=== PATIENT | male | born 1940 ===

== ENCOUNTER 2017-04-05 09:48 | Emergency (ER) | payer MEDICARE ==
[2017-04-05 09:48] VITALS: BMI 34.2
[2017-04-05] MEDS ORDERED: Acetaminophen-Codeine 300/30 mg Tab PO STA (10:23)
[2017-04-05] MEDS ORDERED: Acetaminophen-Codeine 300/30 mg Tab PO ONE (10:29)
--- NOTE | 2017-04-05 10:39 | C.PDOC ---
History Of Present Illness 76 y/o male presents to the ED with complaints of back pain worsening over the past week. 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 Pt has had similar pain in the past, last episode was 5 years ago. Pt took tylenol, naproxen without relief. Pt had appointment with PMD yesterday, but states the wait was too long so he had to leave. He denies fever, urinary/bowel incontinence, urinary retention, sensory changes, extremity weakness. Time Seen by Provider: 04/05/17 10:05 Chief Complaint (Nursing): Back Pain History Per: Patient History/Exam Limitations: no limitations Onset/Duration Of Symptoms: Days, Persistent Current Symptoms Are (Timing): Worse Quality Of Discomfort: "Pain" Severity: Moderate Associated Symptoms: None. denies: Incontinence, New Weakness, New Numbness Exacerbating Factor(s): Sitting Past Medical History Reviewed: Historical Data, Nursing Documentation, Vital Signs Vital Signs: Last Vital Signs Temp 97.3 F L 04/05/17 11:49 Pulse 62 04/05/17 12:32 Resp 18 04/05/17 12:32 BP 169/75 H 04/05/17 12:32 Pulse Ox 98 04/05/17 12:33 - Medical History PMH: Arthritis (MILD IN HANDS), Benign Prostatic Hyperplasia, HTN Family History: States: No Known Family Hx - Social History Hx Tobacco Use: No Hx Alcohol Use: No Hx Substance Use: No - Immunization History Hx Tetanus Toxoid Vaccination: No Hx Influenza Vaccination: Yes Hx Pneumococcal Vaccination: No Review Of Systems Except As Marked, All Systems Reviewed And Found Negative. Constitutional: Negative for: Fever, Chills Cardiovascular: Negative for: Chest Pain, Palpitations Respiratory: Negative for: Cough, Shortness of Breath Gastrointestinal: Negative for: Nausea, Vomiting, Abdominal Pain, Diarrhea Genitourinary: Negative for: Incontinence Musculoskeletal: Positive for: Other (right hip pain) Skin: Negative for: Rash Neurological: Negative for: Weakness, Numbness Physical Exam - Physical Exam Appears: Well, Non-toxic, In Acute Distress (moderate pain) Skin: Warm, Dry, No Rash Head: Normacephalic Oral Mucosa: Moist Neck: Normal, Supple Cardiovascular: Rhythm Regular Respiratory: Normal Breath Sounds, No Rales, No Rhonchi, No Wheezing Gastrointestinal/Abdominal: Normal Exam, Bowel Sounds, Soft, No Tenderness Back: No Vertebral Tenderness, No Paraspinal Tenderness Extremity: Normal ROM (decreased ROM right hip due to pain), Tenderness (right posterior hip tenderness to palpation), No Deformity, No Swelling Extremity: Bilateral: Normal Color And Temperature Pulses: Left Dorsalis Pedis: Normal, Right Dorsalis Pedis: Normal Neurological/Psych: Oriented x3, Normal Motor, Normal Sensation ED Course And Treatment O2 Sat by Pulse Oximetry: 98 (room air) Pulse Ox Interpretation: Normal - Other Rad right hip/pelvis X-Ray: Interpreted by Me, Viewed By Me (no fractures/dislocations, arthritic changes) Progress Note: Patient given Tylenol #3 PO, and Xray of hip/pelvis ordered and reviewed. 11:30am - Patient still having significant pain - IM toradol, PO Flexeril and PO Prednisone ordered. Reevaluation Time: 12:30 Reassessment Condition: Improved (On reassessment, patient states his pain has improved. He is able to ambulate normally in the ED. Rxs given for Naprosyn, Flexeril and Tylenol #3, and patient instructed on their use. He was instructed to follow up with PMD in 1-2 days, and understands he should return to ED if symptoms worsen.) Disposition Counseled Patient/Family Regarding: Studies Performed, Diagnosis, Need For Followup, Rx Given - Disposition Referrals: Clint Jewell MD [Staff Provider] - Disposition: HOME/ ROUTINE Disposition Time: 12:30 Condition: STABLE Additional Instructions: FOLLOW UP WITH YOUR DOCTOR IN 1-2 DAYS USE PAIN MEDICATION NEEDED - DO NOT MIX TYLENOL #3 + CYCLOBENZABRINE RETURN TO ER IF SYMPTOMS WORSEN Prescriptions: Acetaminophen with Codeine [Tylenol with Codeine #3 Tablet] 1 each PO Q6 PRN # 12 tablet PRN Reason: pain Cyclobenzaprine [Cyclobenzaprine HCl] 10 mg PO BID PRN #12 tab PRN Reason: pain/muscle Naproxen [Naprosyn] 1 tab PO BID PRN #20 tab PRN Reason: Pain Instructions: Osteoarthritis (ED), Hip Pain (ED) Forms: Work Excuse Print Language: MACEDONIAN - POA Present On Arrival: None - Clinical Impression Clinical Impression: Osteoarthritis, Right hip pain - Scribe Statement The provider has reviewed the documentation as recorded by the Manish Neville Provider Attestation: All medical record entries made by the Manish were at my direction and personally dictated by me. I have reviewed the chart and agree that the record accurately reflects my personal performance of the history, physical exam, medical decision making, and the department course for this patient. I have also personally directed, reviewed, and agree with the discharge instructions and disposition.
[2017-04-05 11:56] VITALS: TEMP 97.3
--- NOTE | 2017-04-05 12:20 | RAD ---
PROCEDURE: Right Hip Radiographs. HISTORY: right hip pain, COMPARISON: None. FINDINGS: BONES: Normal. No fracture. JOINTS: Normal. SOFT TISSUES: Normal. OTHER FINDINGS: None. IMPRESSION: Normal radiographs of right hip.
[2017-04-05 12:33] VITALS: BP 169/75; PULSE 62; RESP 18; O2SAT 98
== END 2017-04-05 12:39 | disposition home or self-care (01) ==
LOC: C.ER 09:48
DX: M16.11 Unilateral primary osteoarthritis, right hip (principal)
CPT/HCPCS: 73502; 96372; 99284; J1885

== ENCOUNTER 2018-10-29 08:56 | Outpatient (CLI) | payer MEDICARE | END 2018-10-29 08:57 | disposition home or self-care (01) | LOC: C.PAT 08:56 | DX: J34.2 Deviated nasal septum (principal); J34.3 Hypertrophy of nasal turbinates; J32.0 Chronic maxillary sinusitis; J32.1 Chronic frontal sinusitis; J32.3 Chronic sphenoidal sinusitis ==

== ENCOUNTER 2018-11-06 07:22 | Day surgery (SDC) | payer MEDICARE ==
[2018-10-29 09:11] VITALS: BMI 33.6
[2018-11-06] MEDS ORDERED: Acetaminophen-Codeine 300/30 mg Tab PO PRN (08:16)
[2018-11-06] MEDS ORDERED: ceFAZolin 1 gm in NS 1 GM/100 ML BAG IVPB ONE (08:22)
[2018-11-06] MEDS ORDERED: EPINEPHrine 1:1000 Nasal Sol(30mL) ONE (08:23)
[2018-11-06] MEDS ORDERED: Lidocaine/Epinephrine 1% 1:100000 10 ML IJ ONE (08:23)
[2018-11-06] MEDS ORDERED: Dextrose 5%/0.45% NS 1,000 ML IV SCH (08:30)
[2018-11-06] MEDS ORDERED: Succinylcholine Chloride 20 mg/ml Syr (5 ml) IV ONE (10:51)
[2018-11-06] MEDS ORDERED: Rocuronium 10 mg/ml (5 ml) ONE (10:51)
[2018-11-06] MEDS ORDERED: Propofol 10 mg/ml Inj (20 ML) ONE (10:52)
[2018-11-06] MEDS ORDERED: Lidocaine Hydrochloride 5 ML INJ ONE (10:52)
[2018-11-06] MEDS ORDERED: Labetalol 25mg/5ml Syringe ONE (11:11)
[2018-11-06] MEDS ORDERED: ePHEDrine 50 mg/ml Inj ONE (11:18)
[2018-11-06] MEDS ORDERED: Neostigmine 1:1000 (1 mg/ml) Inj ONE (12:05)
[2018-11-06] MEDS: HYDROmorphone 0.5 mg/0.5 ml ISec IVP PRN ×2 (12:43→13:00)
[2018-11-06 13:04] VITALS: RESP 20
[2018-11-06 13:44] VITALS: PULSE 90; TEMP 97.3
[2018-11-06 14:22] VITALS: O2SAT 99
[2018-11-06 14:23] VITALS: BP 130/69
--- NOTE | 2018-11-06 22:52 | OP ---
PROCEDURE DATE: 11/06/2018 PREOPERATIVE DIAGNOSES: Deviated septum, large turbinates, sinusitis. POSTOPERATIVE DIAGNOSIS: Deviated septum, large turbinates, sinusitis. PROCEDURES: Septoplasty, endoscopic bilateral maxillary antrostomy, endoscopic bilateral ethmoidectomy, endoscopic bilateral frontal sinusotomy, endoscopic bilateral inferior turbinate reduction. SIGNIFICANT FINDINGS: Deviated septum, large turbinates, sinusitis. DESCRIPTION OF PROCEDURE: The patient was brought into room, placed in supine position, anesthesia initiated through an ET tube. The patient was draped in usual manner. Navigation was set up and used throughout the case in order to ensure the skull base and orbit were not entered. Adrenaline-soaked pledgets were inserted into nasal cavity, they remained there for 5 minutes and removed. The septum was injected on both sides with lidocaine with epinephrine. A Bet[place] incision was made on the left and mucoperichondrial flap was raised. A vertical incision was made in the cartilage leaving 1.5 cm anterior and superior strut and mucoperichondrial flap was raised on the other side. Deviated portion of bone and cartilage were removed. Quilting suture was used to suture the two flaps together. A 0-degree scope was inserted into the nasal cavity. The inferior turbinates were noted to be enlarged and reduced on both sides, first on the left and then on the right using scissors going from inferior to superior, anterior posterior direction. Bleeding was controlled using suction cautery on both sides. Attention was turned to left and the turbinate was injected with lidocaine with epinephrine and medialized. Polyps were noted in the middle meatus, they were biopsied. A debrider was used to remove the polyps. The area of the uncinate process was removed using a debrider. The ethmoid bulla was entered inferomedially going posteriorly to the basal lamella, then anterior and superiorly until the ethmoid bulla was removed. The basal lamella was entered. Posterior ethmoid cells were entered and opened. Skull base was identified and followed anteriorly all the way to the area of the anterior ethmoid air cells. The frontal recess was noted to be stenosed and opened using forceps. Curved suction hooked up to navigation was used to locate the maxillary antrum which was noted to be stenosed and opened using forceps. Attention was turned to the other side. The middle turbinate was medialized after it was injected with lidocaine with epinephrine. The uncinate process was medialized using a [place] elevator and removed using forceps. A debrider was used to enter the ethmoid bulla inferomedially going posteriorly to the basal lamella, then anteriorly and superiorly until the ethmoid bulla was removed. The basal lamella was entered. Posterior ethmoid cells were entered. The skull base was identified and followed anteriorly all the way to the area of anterior ethmoid air cells. Frontal recess was noted to be stenosed and opened using forceps. Curved suction hooked up to navigation was used to locate the maxillary antrum which was noted to be stenosed and opened using forceps. Bleeding was controlled using adrenaline-soaked pledgets and suction cautery. The patient was taken off anesthesia and taken to recovery room in stable manner after splints and stents were placed. Rickey Sarkar MD
== END 2018-11-06 14:23 | disposition home or self-care (01) ==
LOC: C.SDS 07:22
PROVIDERS: ATTEND Otolaryngology
DX: J34.2 Deviated nasal septum (principal); J34.3 Hypertrophy of nasal turbinates; J32.0 Chronic maxillary sinusitis
CPT/HCPCS: 30140; 30520; 31255; 31256; 82948; 88304; J0690; J1100; J1170; J2405; J2704; J2710; J3010

== ENCOUNTER 2018-11-06 21:44 | Emergency (ER) | payer MEDICARE ==
[2018-11-06 21:44] VITALS: BMI 33.6
[2018-11-06 21:52] VITALS: RESP 20; TEMP 97.7
--- NOTE | 2018-11-06 22:05 | C.PDOC ---
History Of Present Illness The patient, who underwent nasal polyps removal by Dr. Sarkar this afternoon, presents to the ED for evaluation of slight bleeding from the area which began prior to arrival. Patient denies fever, chills, palpitations, nausea, and vomiting. Time Seen by Provider: 11/06/18 22:04 Chief Complaint (Nursing): ENT Problem History Per: Patient History/Exam Limitations: None Onset/Duration Of Symptoms: Hrs Current Symptoms Are (Timing): Still Present Symptoms Have Been: Episodic Severity: Mild Pain Scale Rating Of: 1 Past Medical History Reviewed: Historical Data, Nursing Documentation, Vital Signs Vital Signs: Last Vital Signs Temp 97.7 F 11/06/18 21:46 Pulse 100 H 11/06/18 21:46 Resp 20 11/06/18 21:46 BP 189/80 H 11/06/18 21:46 Pulse Ox 98 11/06/18 21:46 - Medical History PMH: Arthritis, Asthma, Benign Prostatic Hyperplasia, HTN Denies: Chronic Kidney Disease Surgical History: No Surg Hx Family History: States: Unknown Family Hx - Social History Hx Tobacco Use: No Hx Alcohol Use: No Hx Substance Use: No - Immunization History Hx Tetanus Toxoid Vaccination: No Hx Influenza Vaccination: Yes Hx Pneumococcal Vaccination: No Review Of Systems Constitutional: Negative for: Fever, Chills ENT: Positive for: Other (epistaxis ) Cardiovascular: Negative for: Chest Pain, Palpitations Respiratory: Negative for: Cough, Shortness of Breath Gastrointestinal: Negative for: Nausea, Vomiting Skin: Negative for: Rash, Lesions, Jaundice, Bruising Neurological: Negative for: Weakness, Numbness Physical Exam - Physical Exam Appears: Non-toxic, No Acute Distress Skin: Warm, Dry Head: Normacephalic Eye(s): bilateral: Normal Inspection Nose: No Epistaxis (active ), Other (surgical clips in place. small amount of blood noted in the openings of bilateral nares. ) Oral Mucosa: Moist Throat: Other (minimal amount of blood noted in oropharynx ) Neck: Supple Chest: Symmetrical, No Deformity Cardiovascular: Rhythm Regular Respiratory: No Rales, No Rhonchi, No Wheezing Extremity: Normal ROM, Capillary Refill (less than 2 seconds ) Neurological/Psych: Oriented x3 Gait: Steady ED Course And Treatment O2 Sat by Pulse Oximetry: 98 (on RA ) Pulse Ox Interpretation: Normal Progress Note: Case discussed with Dr. Sarkar, agrees to keep patient in the ED for observation. Reevaluation Time: 22:51 Reassessment Condition: Improved Disposition Counseled Patient/Family Regarding: Studies Performed, Diagnosis, Need For Followup - Disposition Referrals: Rickey Sarkar MD [Staff Provider] - Disposition: HOME/ ROUTINE Disposition Time: 22:04 Condition: FAIR Additional Instructions: Please return if symptoms recur. May see dr sarkar tomorrow at his [facility] office Instructions: Nosebleeds (DC) Forms: [employer] (Canadian) - Clinical Impression Clinical Impression: Nasal bleeding - Scribe Statement The provider has reviewed the documentation as recorded by the Scribe (Margot Barlow) Provider Attestation: All medical record entries made by the Scribe were at my direction and personally dictated by me. I have reviewed the chart and agree that the record accurately reflects my personal performance of the history, physical exam, medical decision making, and the department course for this patient. I have also personally directed, reviewed, and agree with the discharge instructions and disposition.
[2018-11-07 00:02] VITALS: BP 132/78; PULSE 90; O2SAT 97
== END 2018-11-06 23:59 | disposition home or self-care (01) ==
LOC: C.ER 21:44
DX: R04.0 Epistaxis (principal); I10 Essential (primary) hypertension; N40.0 Benign prostatic hyperplasia without lower urinary tract symptoms

== ENCOUNTER 2019-02-02 11:58 | Emergency (ER) | payer MEDICARE ==
[2019-02-02 11:59] VITALS: BMI 33.6
[2019-02-02 12:26] VITALS: BP 159/75; PULSE 70; TEMP 97.8; O2SAT 96
--- NOTE | 2019-02-02 13:31 | C.PDOC ---
History Of Present Illness 78 y/o male presents to ED with chief complaint of right lower back pain for the past 3 days s/p right gluteal biopsy. Patient describes the pain to be sharp and is exacerbated by movement. He denies bowel/bladder dysfunction, abdominal pain, weakness, numbness, or other complaints. Time Seen by Provider: 02/02/19 12:22 Chief Complaint (Nursing): Back Pain History Per: Patient History/Exam Limitations: no limitations Onset/Duration Of Symptoms: Days Current Symptoms Are (Timing): Still Present Past Medical History Reviewed: Historical Data, Nursing Documentation, Vital Signs Vital Signs: Last Vital Signs Temp 97.8 F 02/02/19 12:24 Pulse 70 02/02/19 12:24 Resp 19 02/02/19 12:24 BP 159/75 H 02/02/19 12:24 Pulse Ox 96 02/02/19 12:24 Primary Care Provider: Shelby Valencia - Medical History PMH: Arthritis, Asthma, Benign Prostatic Hyperplasia, HTN Denies: Chronic Kidney Disease Family History: States: No Known Family Hx - Social History Hx Tobacco Use: No Hx Alcohol Use: No Hx Substance Use: No - Immunization History Hx Tetanus Toxoid Vaccination: No Hx Influenza Vaccination: Yes Hx Pneumococcal Vaccination: No Review Of Systems Except As Marked, All Systems Reviewed And Found Negative. Constitutional: Negative for: Fever, Chills Gastrointestinal: Negative for: Nausea, Abdominal Pain, Diarrhea Genitourinary: Negative for: Dysuria, Incontinence, Hematuria Musculoskeletal: Positive for: Back Pain Neurological: Negative for: Weakness, Numbness Physical Exam - Physical Exam Appears: Non-toxic, No Acute Distress Skin: Warm, Dry Head: Atraumatic, Normacephalic Eye(s): bilateral: Normal Inspection Oral Mucosa: Moist Neck: Supple Gastrointestinal/Abdominal: Soft, No Tenderness Back: No CVA Tenderness, No Vertebral Tenderness Extremity: No Swelling, Other (point tenderness in right buttock) Extremity: Bilateral: Normal Color And Temperature Neurological/Psych: Oriented x3, Normal Speech, Normal Motor, Normal Sensation ED Course And Treatment O2 Sat by Pulse Oximetry: 96 (RA) Pulse Ox Interpretation: Normal Medical Decision Making Medical Decision Making: Plan: --LS Spine XR --Morphine 2 mg IM --Toradol 15 mg IM --Zofran 4 mg PO Disposition Counseled Patient/Family Regarding: Studies Performed, Diagnosis, Need For Followup, Rx Given - Disposition Referrals: Shelby Valencia MD [Medical Doctor] - Disposition: HOME/ ROUTINE Disposition Time: 13:30 Condition: STABLE Prescriptions: Methocarbamol [Robaxin] 500 mg PO BID 7 Days #18 tab Naproxen [EC-Naprosyn] 500 mg PO BID #10 tablet.dr Instructions: Low Back Pain in Adults Forms: [employer] (Egyptian) - Clinical Impression Clinical Impression: Low back pain - Scribe Statement The provider has reviewed the documentation as recorded by the Manish Moseley Provider Attestation: All medical record entries made by the Manish were at my direction and personally dictated by me. I have reviewed the chart and agree that the record accurately reflects my personal performance of the history, physical exam, medical decision making, and the department course for this patient. I have also personally directed, reviewed, and agree with the discharge instructions and disposition.
[2019-02-02 13:47] VITALS: RESP 20
--- NOTE | 2019-02-02 15:24 | RAD ---
Date of service: 02/02/2019 PROCEDURE: Radiographs of the Lumbar Spine. HISTORY: pain COMPARISON: No prior. TECHNIQUE: 5 views obtained. FINDINGS: BONES: Normal alignment. No listhesis. No fracture. Large marginal osteophyte formation are noted. DISC SPACES: Narrowing of the intervertebral disc is space at L5-S1. OTHER FINDINGS: None. IMPRESSION: Moderate degenerative changes and spondylosis more prominent at L5-S1.
== END 2019-02-02 13:45 | disposition home or self-care (01) ==
LOC: C.ER 11:58
DX: M54.5 Low back pain (principal)
CPT/HCPCS: 72100; 96372; 99284; J1885